=== PATIENT | female | born 1955 | race Caucasian/White ===

== ENCOUNTER 2017-04-15 16:40 | Emergency (ER) | payer BC ==
[2017-04-15 16:52] VITALS: BP 144/76
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
[2017-04-15 17:53] LABS: CHLORIDE,CL 106 mmol/L (101-111); SODIUM,NA 143 mmol/L (135-145)
[2017-04-15] MEDS ORDERED: diphenhydrAMINE 50 MG Cap PO ONE (18:57)
[2017-04-15] MEDS ORDERED: methylPREDNISolone Sodium Succinate 125 MG/2 ML SDV IM ONE (18:57)
[2017-04-15] MEDS ORDERED: Famotidine 20 MG Tab PO ONE (18:58)
[2017-04-15] MEDS ORDERED: Ibuprofen 800 MG Tab PO ONE (19:11)
[2017-04-15] MEDS ORDERED: Clindamycin HCl 150 MG Cap PO ONE (19:39)
== END 2017-04-15 19:54 | disposition home or self-care (01) ==
LOC: DL.ED 16:40
DX: L03.113 Cellulitis of right upper limb (principal); I10 Essential (primary) hypertension; K21.9 Gastro-esophageal reflux disease without esophagitis; H54.7 Unspecified visual loss; Z90.710 Acquired absence of both cervix and uterus; Z96.659 Presence of unspecified artificial knee joint; Z79.899 Other long term (current) drug therapy
CPT/HCPCS: 36415; 73060; 73070; 80048; 85025; 85651; 86140; 96372; 99282; A9270; J2930; Q0163

== ENCOUNTER 2023-06-18 17:10 | Emergency (ER) | payer BC ==
[2023-06-18 17:26] VITALS: BP 163/91; PULSE 74
[2023-06-18 17:57] LABS: APPEARANCE,URINE CLEAR (CLEAR); BILIRUBIN,URINE NEGATIVE (NEGATIVE); COLOR,URINE YELLOW (YELLOW); GLUCOSE,URINE NEGATIVE (NEGATIVE); KETONES,URINE NEGATIVE (NEGATIVE); LEUKOCYTE ESTERASE,URINE NEGATIVE (NEGATIVE); NITRITE,URINE NEGATIVE (NEGATIVE); OCCULT BLOOD,URINE NEGATIVE (NEGATIVE); PH,URINE 6.5 (5.0-9.0); PROTEIN,URINE NEGATIVE (NEGATIVE); UROBILINOGEN,URINE 0.2 mg/dL (0.2-1.0)
[2023-06-18] MEDS ORDERED: methylPREDNISolone Sodium Succinate 40 MG/1 ML SDV IM ONE (19:05)
== END 2023-06-18 19:29 | disposition home or self-care (01) ==
LOC: DL.ED 17:10
DX: M54.50 Low back pain, unspecified (principal); I10 Essential (primary) hypertension; K21.9 Gastro-esophageal reflux disease without esophagitis; Z79.899 Other long term (current) drug therapy; Z88.5 Allergy status to narcotic agent; Z88.8 Allergy status to other drugs, medicaments and biological substances
CPT/HCPCS: 72100; 72220; 81003; 96372; 99283; 99284; J2920